=== PATIENT | male | born 1995 | race Caucasian/White ===

== ENCOUNTER 2024-03-29 15:06 | Outpatient (AMB) | payer BC, SELFPAY ==
--- NOTE | 2024-03-29 15:15 | A.OFFVIS_ITS ---
Intake Visit Reasons: vasectomy consult Intake Note: New Patient presents for initial visit for vasectomy consult Children#1; Expected Children #0 Urology Medications: none Blood Thinner: none Systems Requirements Planner Required: No Accompanied by: Self / Same As Patient Allergies No Known Allergies Allergy (Verified 03/29/24 15:44) Medication List - Last Reconciled 03/29/24 by DAWN Still bupropion HCl XL 300 mg PO DAILY valacyclovir 500 mg PO DAILY HPI Comments Details: Garry is a 28-year-old male patient of Dr. Prakash. He has a past medical history of ADD, depression, and chronic fatigue. He presents to the office today for - vasectomy evaluation Vasectomy evaluation The patient presents for vasectomy consultation.? 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 Patient education has been provided via AUA video, via printed information, risks of failure, recovery time, bruising and potential pain syndrome have been stressed Discussion today focused on the presence of vasectomy and the risks, benefits and alternatives that are available. Vasectomy as intended as a permanent form of control. Printed information and literature was provided to the patient. Overall there is a one in 2500 failure rate. This can occur at any time after vasectomy. Risks were discussed highlighting hematoma, spermatocele, epididymal congestion, development of sperm antibodies, and development of chronic pain estimated between 1-5%. The procedure was reviewed in detail. Anatomical diagrams of the male genitalia were used to explain the location of the vas deferens. The vas deferens will be transected, the proximal end will be cauterized, a metal clip would be applied to separate the 2 vas deferens ends. It was explained the procedure will be done in the office and takes approximately 10-15 minutes however, patient would like to have procedure in [place] if possible. Less common problems that arise with vasectomy include hematoma, bleeding, allergic reaction to anesthetic, epididymal infection, epididymal congestion, scrotal discomfort, spermatic leak, spermatic granuloma and the possibility of antisperm antibodies. He understands these risks and wishes to proceed. Consent was signed at the office today. He also understands that it takes 12 weeks for sperm to fully clear the system. He will need to provide a semen sample at 12 weeks and if this is not clear a 2nd sample at 16 weeks. Medical clearance to stop using protection will only be provided if he satisfies published criteria for sperm clearance. [facility] Medical History Chronic fatigue Moderate recurrent major depression Attention deficit disorder Review of Systems Const All systems reviewed & are unremarkable except as noted in HPI and below Physical Exam Const General: cooperative, healthy appearing, comfortable, no acute distress, well developed, alert and awake Orientation/consciousness: patient oriented x3 Limitations: no limitations HEENT Head: Yes normal to inspection, Yes normocephalic and Yes atraumatic Ears: hearing grossly normal bilaterally Eyes General: appearance normal, both eyes and all related structures Neck Neck: Yes normal visual inspection and Yes trachea midline Chest Chest palpation & inspection: normal inspection of the chest Resp Effort & Inspection: normal respiratory effort and able to speak in complete sentences Cardio Rate: regular rate GI Inspection: Yes normal to inspection General: Yes no CVA tenderness Back/Spine/Pelvis Back: no CVA tenderness Skin General skin exam: no rashes or lesions noted Neuro General: patient oriented x3 Extrem General: Yes normal to inspection Psych Appearance: grossly normal and well kempt Mental Status: mental status grossly normal Speech and movement: Normal speech and movement present and Clear speech present Affect: normal affect Attitude: cooperative Thought process: Normal thought process present Thought content: Normal thought content present Insight: Fair insight present (Psych) Judgement: Fair judgement present (Psych) Assessment & Plan Assessment & Plan (1) Vasectomy evaluation: Code(s): Z30.09 - Encounter for other general counseling and advice on contraception Category: Medical (2) Anxiety about health: Code(s): R45.89 - Other symptoms and signs involving emotional state Category: Medical Plan: Risks, benefits and alternatives to therapy were discussed. These include but are not limited to infection, bleeding, damage to local organs and tissues, need for further interventions. ? Anesthetic risks regarding cardiac arrhythmia, blood clots, and potential mortality were discussed. The patient understands the typical recovery time and the outpatient nature of the procedure. After consideration of these risks the patient gives full informed consent and they wish to move ahead with the procedure. Plan Discussed at length risks and benefits of vasectomy. Discussed procedure at length he would like to have this done in [place] if possible. Will attempt to obtain insurance authorization. Discussed follow-up status post procedure with semen analysis. Consent obtained. All questions were answered. Will schedule for vasectomy in operating room. Follow-up per doctor's orders; or sooner with any issues, concerns, and or questions. Patient Instructions: The patient had an opportunity to ask questions regarding the treatment plan. All questions were answered. Physical exam, labs, and imaging were discussed and reviewed in detail. As well as risks, benefits, and discussion of treatment choices. No major barriers to understanding were identified. The patient expressed understanding and agreement with the above treatment plan. The patient was made aware they should contact our office by phone for worsening of their current condition, the appearance of new symptoms, or with any questions or concerns. Compliance is encouraged with any medications and follow up testing that is ordered. It is a privilege to be allowed the opportunity to participate in? your urological care.? Again, if you have any questions or c oncerns If you have any questions or concerns please do not hesitate to contact me. The office is [phone]. This note is constructed using voice recognition software. While every effort has been made to ensure accuracy plating foreman errors may have been included. Yours sincerely, DAWN Still Coding Level of Care Code New Pt Level 4 (12454) Diagnoses Vasectomy evaluation Z30.09 Anxiety about health R45.89
== END 2024-03-29 15:41 | disposition home or self-care (01) ==
PROVIDERS: PCP Family Medicine; Visit Provider Nurse Practitioner Family
DX: Z30.09 Encounter for other general counseling and advice on contraception (principal); R45.89 Other symptoms and signs involving emotional state
CPT/HCPCS: 99204

== ENCOUNTER 2024-08-23 14:59 | Emergency (ER) | payer BC, SELFPAY ==
[2024-08-23 15:05] VITALS: BP 127/78; PULSE 59; RESP 16; TEMP 36.7; O2SAT 99; BMI 28.4
--- NOTE | 2024-08-23 15:30 | ED_ITS ---
HPI - General Adult General Chief complaint: Upper Respiratory Symptoms Stated complaint: sore throat Time Seen by Provider: 08/23/24 16:48 Source: patient Mode of arrival: ambulatory Limitations: no limitations History of Present Illness ED Provider: Leann Muhammad PA-C HPI narrative: Patient is a 28 year old assigned male at with no reported medical history presenting to the emergency department today with a sore throat. Patient states that over the last 5 days he has had a sore throat. Patient denies any dizziness, lightheadedness, abdominal pain, nausea, vomiting, fever, chills, blurry vision, double vision, loss of vision, chest pain, difficulty breathing, shortness of breath, back pain, night sweats, pain with urination, increased urinary frequency, increased urinary urgency, blood in his urine or stool, syncope or a near syncopal episode, recent trauma or falls, bowel incontinence, bladder incontinence, or any other complaints at this time. Onset (ago): day(s) (5) Relieving factors: none Exacerbating factors: none Associated symptoms: denies other symptoms Treatments prior to arrival: none Related Data Home Medications ?Medication ?Instructions ?Recorded ?Confirmed bupropion HCl 300 mg 24 hr tablet, 300 mg PO DAILY 03/29/24 extended release valacyclovir 500 mg tablet 500 mg PO DAILY 03/29/24 Allergies Allergy/AdvReac Type Severity Reaction Status Date / Time No Known Allergies Allergy Verified 08/23/24 15:07 Review of Systems Constitutional: Constitutional: Reports no additional constitutional complaints, Denies chills, Denies fever(s) and Denies night sweats Eyes: Eyes: Reports no additional eye complaints, Denies blurry vision, Denies change in vision, Denies diplopia, Denies eye discharge, Denies loss of vision and Denies eye pain ENT: Denies dizziness and Reports sore throat Cardiovascular: Cardiovascular: Reports no additional cardiovascular complaints, Denies chest pain, Denies lightheadedness, Denies Loss of Consciousness and Denies dyspnea Respiratory: Respiratory: Reports no additional respiratory complaints and De nies dyspnea Gastrointestinal: Gastrointestinal: Reports no additional gastrointestinal complaints, Denies abdominal pain, Denies melena, Denies hematochezia, Denies change in bowel habits and Denies change in stool character Genitourinary: Genitourinary: Reports no additional male genitourinary complaints, Denies hematuria, Denies oliguria, Denies difficulty urinating, Denies dysuria, Denies urinary frequency, Denies urinary hesitancy, Denies urinary incontinence and Denies urinary urgency Musculoskeletal: Musculoskeletal: Reports no additional musculoskeletal complaints, Denies numbness and Denies tingling Neurologic: Denies dizziness, Denies loss of vision, Denies numbness and Denies tingling Psychiatric: Psychiatric: Reports no additional psychiatric complaints Endocrine: Endocrine: Reports no additional endocrine complaints Hematologic/Lymphatic: Hematologic/Lymphatic: Reports no additional hematologic/lymphatic complaints Allergic/Immunologic: Allergic/Immunologic: Reports no additional allergic/immunologic complaints [facility] Past Medical History Attestation statement: The following information was validated with the patient. Source: old records reviewed and nursing notes reviewed Medical History Chronic fatigue Moderate recurrent major depression Attention deficit disorder Social History Social History Advance Directives: No Advance Directives Information Provided: Yes Do you have a plan to hurt others: No Plan Physical Exam ED Vital Signs: Vital Signs - 24 hr 08/23/24 15:05 08/23/24 16:55 Temperature 98.1 F 98.1 F Pulse Rate 59 59 Respiratory Rate 16 16 Blood Pressure 127/78 127/78 Pulse Oximetry 99 99 Oxygen Delivery Method Room Air Room Air BMI result Body Mass Index 28.4 Const General: cooperative, no acute distress, alert and awake Nutritional Appearance: well nourished Orientation/consciousness: patient oriented x3 Limitations: no limitations [facility] Head: Yes normal to inspection and Yes atraumatic Ears: hearing grossly normal bilaterally and external ears normal General nose exam: Normal external nose present, no nasal discharge noted and no epistaxis Face and sinus: Yes normal facial exam, No abrasion and No laceration Mouth: Normal oral and palatal mucosa present, no drooling and no muffled voice Throat: Yes abnormal tonsil (bilateral erythema) Eyes General: appearance normal, both eyes and all related structures Periorbital: periorbital findings normal Eyelids: Yes eyelids normal Conjunctivae: conjunctivae normal Pupils: Equal, round and reactive pupils present EOM: EOMs intact bilaterally Neck Neck: Yes normal visual inspection, Yes full ROM and Yes no lymphadenopathy Chest Chest palpation & inspection: normal inspection of the chest Resp Effort & Inspection: normal respiratory effort and able to speak in complete sentences GI Inspection: Yes normal to inspection Neuro General: patient oriented x3, moves all extremities and CN's II-XI intact bilaterally Cranial nerves: Yes Equal, round and reactive pupils present Cognition (Neuro): normal cognition Extrem General: Yes normal to inspection, Yes full ROM and Yes capillary refill normal Psych Appearance: grossly normal Mental Status: mental status grossly normal Affect: normal affect Attitude: cooperative Thought process: Normal thought process present Thought content: Normal thought content present Insight: Good insight present (Psych) Course Course Course Narrative: RME: 28-year-old male presents to ED for sore throat for 5 days difficulty swallowing and eating. Patient denies any drooling or change in voice. Negative for signs of peritonsillar abscess. SARs strep ordered Medical Decision Making Medical Decision Making MDM Narrative: Patient is a 28 year old assigned male at with no reported medical history presenting to the emergency department today with a sore throat. Patient's physical exam was as noted in the physical exam portion of this note. I explained my physical exam findings as well as all test results to the patient. I answered all questions asked by the patient. Patient's clinical presentation is most consistent with pharyngitis. I stressed the importance of the patient taking his medication as directed (either prescribed or as the over the counter packaging recommends). I stressed the importance of the patient following up with his primary care provider. I stressed the importance of the patient returning to the emergency department immediately if his symptoms were to worsen or if he were to develop any dizziness, shortness of breath, difficulty ayanna thing, chest pain, blurry vision, loss of vision, nausea, vomiting, abdominal pain, fever, chills, back pain, or any other complaints. Patient verbalized agreement and understanding with this treatment plan and discharge. Differential Diagnosis Differential Diagnoses: The differential diagnosis associated with the presentation includes Pharyngitis COVID-19 Influenza RSV Admission/Observation Consideration of admission/observation: Escalation of care including ad mission/observation considered Patient would have been admitted to the hospital had his work up had any findings where hospital admission was appropriate and his clinical presentation warranted hospital admission. Lab Data [facility] Lab Attestation statement: I reviewed the patient's lab results. My interpretation of these results are in the MDM Rationale portion of this note. Labs: Lab Results 08/23/24 Range/Units 15:14 Influenza Type A (PCR) NEGATIVE (Negative) Influenza Type B (PCR) NEGATIVE (Negative) RSV RNA Qual (PCR) NEGATIVE (Negative) SARS-CoV-2 RNA (RT-PCR) NEGATIVE (Negative) S. pyogenes GrpA HIREN Negative (Negative) Discharge Plan Discharge Clinical Impression: Viral illness, Pharyngitis Patient Disposition: Home, Self-Care Instructions: Pharyngitis (ED), Viral Syndrome (ED) Additional Instructions: Your clinical presentation is most consistent with a viral illness. Please stay hydrated with electrolyte containing fluids (Gatorade or Powerade). Follow up with your primary care provider. Return to the emergency department immediately if your symptoms worsen or if you develop any numbness, tingling, dizziness, shortness of breath, difficulty breathing, chest pain, blurry vision, loss of vision, nausea, vomiting, abdominal pain, fever, chills, back pain, or any other complaints. Please see the information below about our Patient Portal. If you are not yet enrolled in the [facility] Patient Portal, you will receive an enrollment email invitation following your visit to any [facility] setting. You may also self-enroll in the Patient Portal by visiting our website: [email or web address] The following information is required to access the Patient Portal: - Your [facility] Medical Record Number - Your personal home email address (must match what is in your electronic medical record, Registration staff can assist with this) - Name - Date of Capabilities of the Patient Portal: - Message some providers - View upcoming appointments - Access your health summary, medical history, and visit history - View current conditions and allergies - View procedure and lab results - View your medications, including guidelines, side effects, and precautions - Complete pre-appointment questionnaires requested by your provider - Ready summary reports of your office visits and procedures To access the Patient Portal Mobile [employer], follow these directions: - Search [employer] in the Amilcar Store or Google Play Store - Download the Amilcar - Search for [facility] - Enter your login/password Prescriptions: No Action bupropion HCl 300 mg tablet extended release 24 hr 300 mg PO DAILY valacyclovir 500 mg tablet 500 mg PO DAILY Referrals: [facility] Family Medicine [Provider Group] (Call to establish and follow up with a primary care provider. If you already have a primary care provider, please follow up with them.) [facility] Primary Care, Matti [Provider Group] (Call to establish and follow up with a primary care provider. If you already have a primary care provider, please follow up with them.) [facility] Primary CareYemi [Provider Group] (Call to establish and follow up with a primary care provider. If you already have a primary care provider, please follow up with them.) [facility] Primary CareAbdullahi [Provider Group] (Call to establish and follow up with a primary care provider. If you already have a primary care provider, please follow up with them.) Stand Alone Forms: Work/School Release Interventions: ED Discharge Assessment Last Done: 08/23/24 16:55 Discharge Date/Time: 08/23/24 16:56 Print Language: Palestinian
[2024-08-23 15:33] LABS: IDNOW Serial# 58CA691E; Strep A Nucleic Acid Negative (Negative)
[2024-08-23 16:04] LABS: Influenza A PCR NEGATIVE (Negative); Influenza B PCR NEGATIVE (Negative); Resp Syncy Virus RNA Qual PCR NEGATIVE (Negative); SARS COV2 PCR INHOUSE NEGATIVE (Negative)
[2024-08-23 16:55] VITALS: BP 127/78; PULSE 59; RESP 16; TEMP 36.7; O2SAT 99
--- OUTSIDE RECORDS SUMMARY | 2024-08-23 18:04 | XMS_ITS | Clinical Summary ---
Author Organization [employer] Address [address] [place] [address] Care Team Providers Care Workers' Compensation Magistrate Name Role Phone Leslie Arguetaline Unavailable Unavailable DwainBonnie Primary Care Provider [phone] Allergies No known active allergies Medications * This document contains information received from the source organization and may not represent a complete record from that organization. buPROPion XL (Wellbutrin XL) 300 MG 24 hr tabletIndications :Attention deficit hyperactivity disorder (ADHD), unspecified ADHD type,Moderate recurrent major depression (CMS/HCC) TAKE 1 TABLET (300 MG) BY MOUTH IN THE MORNING 30 tablet 11 02/02/20 24 025 Active valACYclovir (Valtrex) 500 MG tablet TAKE 1 TABLET (500 MG) BY MOUTH IN THE MORNING 30 tablet 5 08/10/19 25 Active valACYclovir (Valtrex) 500 MG tablet TAKE 1 TABLET (500 MG) BY MOUTH IN THE MORNING 30 tablet 5 02/02/20 24 025 Discontinued Active Problems Problem Noted Date Diagnosed Date Erectile dysfunction 03/15/2024 Assessment & Plan (03/15/2024 10:10 PM EDT): See HPI and encounter note with EMERGENCY RESPONSE TECHNICIAN Felix Lacy, pt had rx for viagra but didn't have occasion to use until more recently - new partner, reviewed correct use prior to sex. Is receptive to consult with urologist and reviewing chart we see he was already referred by his PCP but apparently hasn't been contacted yet by the urology office. No new referral should be necessary if pt is able to connect with the urology office to schedule as appears they were supposed to him to schedule. Encouraged Joaquin to discuss with PCP if also interested in seeing new therapist with whom he would feel comfortable discussing this concern (again see last encounter note with LYNDSAY Lacy for recommendations reviewed), pt agrees. No further questions or concerns at visit conclusion. Parenting stress 12/16/2023 Overview (12/16/2023): Joaquin agrees with in house referral: multiple concerns and wants to be a good parent to his 2 year old daughter with whom his shares custody with her mother. Has sole parenting responsibility multiple days of the week, discussed and receptive to learn skills/strategies for reducing stress/frustration and better understanding/coping with developmental stages of young children and expectations. Anhedonia 12/16/2023 Assessment & Plan (12/16/2023 9:24 PM EDT): Discussed medication adjunctive options to current bupropion and Joaquin would prefer to meet with (we discussed therapist but aware Dr. Delacruz and LYNDSAY Linn also may be able to meet with him virtually as he prefers and area both prescribers) and get results on the labs we discussed getting drawn before making medication additions/adjustments. 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 Pt aware of resources such as 988 if feelings of crisis or can't wait for therapy appointment to discuss treatment options. Chronic fatigue 08/05/2023 Overview (08/05/2023): Reports chronic fatigue symptoms for years. Assessment & Plan (12/16/2023 9:33 PM EDT): No improvement per Joaquin and willing to evaluate with some additional labs, plans to call the [facility] to make sure orders will be available at the [facility] in [place] where he would like to have drawn. Encouraged fasting and presenting well hydrated with water. Plan for followup once resulted and also agrees to meeting with (either therapist or Nik Delacruz or Aleshia Linn) for discussion as per other diagnoses addressed at [facility] visit. Encouraged routine/schedule and adequate sleep/sleep hygiene and Joaquin states he is sleeping fine. Assessment & Plan (08/29/2023 4:25 PM EDT): Chronic fatigue for years. Lab eval 08/14/23 unremarkable Discussed sleep habits and sleep deficit which may be contributing Also discussed reducing later caffeine intake Will check testosterone given fatigue plus sexual dysfunction Discussed possible diagnosis of CFS/ME, typical prognosis and supportive care Assessment & Plan (08/05/2023 11:01 AM EDT): Discussed likely multifactorial. Advised lab work for assess for common causes of fatigue including hypothyroidism, anemia. Reviewed lifestyle- currently getting 4-5 hours sleep nightly, encouraged more sleep. Feels depression is stable with current dose of Wellbutrin. KEY-7 Total Score: 3 (08/05/2023 10:41 AM) Patient Health Questionnaire-9 Score: 7 (08/05/2023 10:43 AM) Patient Health Questionnaire-2 Score: 2 (08/05/2023 10:43 AM) Mass of buttock 11/28/2022 Dyshidrotic dermatitis 10/07/2022 Palpitations 04/29/2022 Genital herpes simplex 04/29/2022 Assessment & Plan (04/29/2022 9:49 PM EST): As above. Acute exacerbation of asthma with allergic rhini tis 04/23/2022 Allergic rhinitis 04/23/2022 Acute non intractable tension-type headache 10/2021 ADHD (attention deficit hyperactivity disorder) 04/23/2022 Assessment & Plan (12/16/2023 9:30 PM EDT): Continue current bupropion, no adverse s.e. has been tolerating well since last December now at 300 mg once daily q a.m. dosing, just doesn't know that it is doing enough for his emotional health symptoms as per HPI. Agrees to schedule with therapist/prescriber to discuss parenting stressors/support and emotional health symptoms of continued concern. No SI/HI red flags noted in [facility] conversation and is aware of crisis line if needs immediate person to speak with and call the health center for followup. Prefers virtual appointments when at all possible. When considering adjunctive treatment to the bupropion pt mentions he doesn't want anything with sexual side effects or that cause him to gain weight. Autism 04/23/2022 Daytime somnolence 04/23/2022 Flexural eczema 04/23/2022 Lymphangitis 04/23/2022 Mild intermittent asthma 04/23/2022 Mild obesity 04/23/2022 Moderate recurrent major depression 04/23/2022 Obstructive sleep apnea 04/23/2022 Herpetic wilian 04/23/2022 Assessment & Plan (04/29/2022 9:48 PM EST): Pt reports complete resolution with proper use of topical acyclovir; lesion returned about 3 weeks after cessation of use and has continued to progress to present state. Will start daily treatment as he has had several similar outbreaks of this within the last year and struggles to use acyclvir topical product effectively. Pt agreeable to oral daily med for suppression. Denies any other lesions and has not had gential outbreak in approx 5 years. Pt to RTC as needed. Testicular mass 04/23/2022 Encounters Date Type Department Care Team Description 08/09/[address] [facility] MEDICAL [address] [place] [address] Bonnie Prakash DO 05/26/[address] [facility] MEDICAL [address] [place] [id number] Bonnie Prakash DO Gas; Memory Loss from Last 3 Months Immunizations Name Administration Dates Next Due DTP 06/02/1995, 5,04/17/1994,02/13 DTaP 1998 HPV 9-Valent 08/12/2012,04/07/2012,04/05/2011 Hep B, Adolescent or Pediatric 09/17/1994,1993,1993 Hib (PRP-T) 06/02/1995, 5,04/17/1994,02/13 Influenza, IIV3, injectable 04/08/2018 Influenza, Split (incl. john fied surface antigen) 04/07/2012,04/01/2011,04/04/2010 MMR 1998,12/19/1994 Meningococcal MCV4P ACYW-135 04/05/2011,01/22/20 07 Moderna Covid-19 Vaccine 12+ 12/07/2020,11/10/19 21 Polio, Unspecified 09/17/1994,04/17/1994, 994 TD (adult), 2 Lf tetanus tox oid, preservative free, adsorbed 06/09/2021,01/13/2004 Tdap 09/18/2016,03/31/2009 Family History Relation Name Status Comments Brother Alive Father Alive Mother Alive Sister Alive Social History Tobacco Use Types Packs/Day Years Used Date Smoking Tobacco: Some Days Cigars Passive Smoke Exposure: Current Smokeless Tobacco: Never Tobacco Cessation:Ready to Q uit: Not Asked; Counseling Given: Not Answered Alcohol Use Standard Drinks/Week Comments Yes 0 (1 standard drink = 0.6 oz pur e alcohol) rare Alcohol Answer Date Recorded How often do you have a drink containing alcohol ? 0 08/15/2023 How many drinks containing a lcohol do you have on a typical day when you are drinking? 0 08/15/2023 How often do you have six or more drinks on one occasion? 0 08/15/2023 Depression Answer Date Recorded Patient Health Questionnaire-9 Score 5 08/15/2023 Patient Health Questionnaire-9 Score 5 08/15/2023 Last PHQ-9: Questionnaire Data Not on file 0 08/15/2023 Housing Stability Answer Date Recorded What is your housing situation today? I have martínez mei 01/29/[address] you li ve. Do you have problems with any of the following? None of the above 01/29/2024 Food Insecurity Answer Date Recorded Within the past 12 months, y ou worried that your food would run out before you got money to buy more: Never True 01/29/2024 Within the past 12 months,th e food you bought just didn't last and you didn't have enough money to get more: Never True 04/2024 Transportation Answer Date Recorded In the past 12 months, has l ack of transportation kept you from medical appts, meetings, work or from getting things needed for daily living? No 01/29/2024 Intimate Partner Violence Answer Date R ecorded Within the last year, have y ou been afraid of your partner or ex-partner? 2 08/15/2023 Within the last year, have y ou been humiliated or emotionally abused in other ways by your partner or ex-partner? 2 Within the last year, have y ou been kicked, hit, slapped, or otherwise physically hurt by your partner or ex-partner? 2 08/15/2023 Within the last year, have y ou been raped or forced to have any kind of sexual activity by your partner or ex-partner? 2 08/15/2023 Utilities Answer Date Recorded In the past 12 months, has t he [employer], gas, oil or water company threatened to shut off services in your home? No 01/29/2024 Depression Answer Date Recorded Patient Health Questionnaire-2 Score 0 01/29/2024 Internet Access Answer Date Recorded Internet Access Q1 Yes 01/29/2024 Internet Access Q2 Not on file 01/29/2024 Education Answer Date Recorded What is the highest level of school you have completed or the highest degree you have received? 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 Not on file Not on file Last Filed Vital Signs Vital Sign Reading Time Taken Comments Blood Pressure 136/80 01/29/2024 12:15 PM EDT Pulse 95 01/29/2024 12:15 PM EDT Temperature 36.9 ??C (98.4 ??F) 01/29/2024 12:15 PM E DT Respiratory Rate 16 09/07/2022 11:33 AM EDT Oxygen Saturation 95% 01/29/2024 12:15 PM EDT Inhaled Oxygen Concentration - - Weight 94.8 kg (209 lb) 01/29/2024 12:15 PM EDT Height 185.4 cm (6' 1 ) 01/29/2024 12:15 PM EDT Body Mass Index 27.57 01/29/2024 12:15 PM EDT Plan of Treatment Health Maintenance Due Date Last Done Comments IPV Vaccines (4 of 4 - 4-dose series) 1997 09/17/1994, 04/17/1994, 02/13/1994 Alcohol/Substance Use Screening 2005 Family Planning (PISQ) 2008 Hepatitis C Screening 12/14/2011 Pneumococcal Vaccine: Pediatrics (0 to 5 Years) and At-Risk Patients (6 to 49) Years) (1 of 2 - PCV) 2012 Lipid Panel 12/02/2017 12/02/2012 Dental Oral Exam 11/29/2020 05/31/2020, 09/2017, 01/14/2017, Additional history exists Dental Prophylaxis 11/29/2020 05/31/2020, 0 07/21/2017, 01/14/2017, Additional history exists Dental X-Ray: Bitewings 06/01/2021 05/31/19 21, 01/14/2017, 01/04/2016, Additional history exists Dental X-Ray: Full Mouth 06/01/2023 021, 01/04/2016, 03/27/2012 COVID-19 Vaccine ( season) 2024 12/07/2020, 11/09/2020 Influenza Vaccine (#1) 2024 8, 04/07/2012, 04/01/2011, Additional history exists Depression Screening 01/28/2025 01/29/2024, 08/15/19 24 SDOH Screening 01/28/2025 01/29/2024 Tobacco Screening 03/15/2025 03/15/2024 DTaP/Tdap/Td Vaccines (9 - Td or Tdap) 06/09/2031 06/09/2021, 09/18/2016, 03/31/2009, Additional history exists Zoster Vaccines (1 of 2) 12/14/2043 RSV Patients and Patients Aged 60 years or older (1 - 1-dose 75+ series) 2068 Hepatitis B Vaccines Completed 09/17/1994, 02/13/1994, 1993 HIB Vaccines Completed 06/02/1995, 05/21, 04/17/1994, Additional history exists Meningococcal Vaccine Completed 04/05/2011, 007 HPV Vaccines Completed 08/12/2012, 03/20, 04/05/2011 HIV Screening Completed 03/23/2014 Hepatitis A Vaccines Aged Out No long er eligible based on patient's age to complete this topic RSV under 20 months Aged Out No longe r eligible based on patient's age to complete this topic Rotavirus Vaccines Aged Out No longer eligible based on patient's age to complete this topic Procedures Procedure Name Priority Date/Time Associated Diagnosis Comments PROPHYLAXIS - ADULT Routine 05/31/2020 1 2:00 AM EST INTRAORAL - COMPLETE SERIES OF RADIOGRAPHIC IMAGES Routine 05/31/2020 12:00 AM EST PERIODIC ORAL EVALUATION - ESTABLISHED PATIENT Routine 05/31/2020 12:00 AM EST HIV-1 ANTIBODY, EIA Routine 03/23/2014 LIPID PANEL, STANDARD Routine 12/02/2012 from Last 3 Months or Most Recently Relevant to Health Maintenance Results * HIV-1 antibody, EIA (03/23/2014) External HIV-1 Antibody Negative Blood Venous blood specimen / Unknown Historical Provider LAB BLOOD ORDERABLES Taylor l Result * (ABNORMAL) Lipid Panel, Standard (12/02/2012) Triglycerides 38(A) 40 - 160 mg/dL Cholesterol 101 0 - 200 mg/dL HDL Cholesterol 53 35 - 70 mg/dL LDL Cholesterol 40 mg/dL Blood Venous blood specimen / Unknown us Historical Provider LAB BLOOD ORDERABLES Taylor l Result from Last 3 Months or Most Recently [place]vant [place] [id number] [facility] PPO Care Teams Workers' Compensation Magistrate Relationship Specialty Start Date End Date Bonnie Prakash DO [address] [place] [id number] PCP - General Family Medicine 01/30/24 Inez Argueta Community Health Worker 09/23/22
--- OUTSIDE RECORDS SUMMARY | 2024-08-23 18:04 | XMS_ITS | Encounter Summary ---
Author Organization [employer] Address [address] [place] [address] Care Team Providers Care Ssis Architect Name Role Phone Manuela Bernard Primary Care Provider Unavailable Inez Argueta Unavailable Unavailable Manuela Bernard Primary Care Provider Unavailable Bonnie Prakash DO Primary Care Provider Bonnie Prakash DO Primary Care Provider [phone] Encounter Details Date Type Department Care Team (Late st Contact Info) Description 04/23/2022 Orders Only [facility] MEDICAL [address] [place], [place] [id number] Manuela Bernard FNP Social History Tobacco Use Types Packs/Day Years Used Date Smoking Tobacco: Never Assessed Sex and Gender Information Value Date Recorded Sex Assigned at Male 04/30/2022 3:25 PM EST Legal Sex Male 8:35 PM EDT Gender Identity Male 04/30/2022 3:25 PM EST Sexual Orientation Choose not to disclose 2022 3:15 PM EST documented as of this encounter Plan of Treatment Not on file documented as of this encounter Visit Diagnoses Not on filedocumented in this encounter Care Teams Ssis Architect Relationship Specialty Start Date End Date Manuela Bernard FNP PCP - General Family Medicine 04/29/22 12/16/23 Manuela Bernard FNP PCP - General Family Medicine 12/17/23 01/28/24 Bonnie Prakash DO [address] [place] [address] PCP - General Family Medicine 01/29/24 01/29/24 Bonnie Prakash DO [address] [place] [address] PCP - General Family Medicine 01/30/24 Inez Argueta Community Health Worker 09/23/22 documented as of this encounter
== END 2024-08-23 16:56 | disposition home or self-care (01) ==
PROVIDERS: Emergency Provider Emergency Medicine Emergency Medical Services
DX: B34.9 Viral infection, unspecified (principal); J02.9 Acute pharyngitis, unspecified; R13.10 Dysphagia, unspecified; Z03.818 Encounter for observation for suspected exposure to other biological agents ruled out
CPT/HCPCS: 0241U; 87651; 99282; 99283

== ENCOUNTER 2024-11-03 11:47 | Emergency (ER) | payer BC, SELFPAY ==
[2024-11-03 12:00] VITALS: BP 129/68; PULSE 58; RESP 16; TEMP 36.5; O2SAT 98; BMI 27.5
--- NOTE | 2024-11-03 12:01 | ED.GENADULT ---
HPI - General Adult General Chief complaint: General Medical Stated complaint: STD Testing Related Data Home Medications ?Medication ?Instructions ?Recorded ?Confirmed bupropion HCl 300 mg 24 hr tablet, 300 mg PO DAILY 03/29/24 extended release valacyclovir 500 mg tablet 500 mg PO DAILY 03/29/24 Allergies Allergy/AdvReac Type Severity Reaction Status Date / Time No Known Allergies Allergy Verified 11/03/24 12:02 [facility] Past Medical History Medical History Chronic fatigue Moderate recurrent major depression Attention deficit disorder Social History Social History Advance Directives: No Advance Directives Information Provided: No Do you have a plan to hurt others: No Plan Physical Exam ED Vital Signs: Vital Signs - 24 hr 11/03/24 12:00 Temperature 97.7 F Pulse Rate 58 Respiratory Rate 16 Blood Pressure 129/68 Pulse Oximetry 98 Oxygen Delivery Method Room Air BMI result Body Mass Index 27.5 Course Course Course Narrative: RME, this is a rapid medical exam performed by Daron Hensley please refer to primary provider for complete H&P- 28 year old male presents for evaluation of STI testing. He is requesting testing because his girlfriend wants him to be tested. He reports that he has ?some sort of warts in the area that has been there for about 8 years. ? Medical Decision Making Lab Data Labs: Lab Results 11/03/24 Range/Units 12:34 Urine Color Yellow Urine Appearance Clear Urine pH 6.5 (5.0-9.0) Ur Specific [place] 1.025 (1.005-1.025) Urine Protein Negative (Neg-Trace) mg/dL Urine Glucose (UA) Negative (Negative) mg/dL Urine Ketones Trace (Negative) mg/dL Urine Blood Negative (Negative) Urine Nitrite Negative (Negative) Ur Leukocyte Esterase Negative (Negative) Urine RBC 0-2 (0-2) /HPF Urine WBC 0-5 (0-5) /HPF Ur Squamous Epith Cells 0-2 (0-2) /HPF Urine Bacteria None Seen (None Seen) Hyaline Casts 0-2 (0-2) /LPF Chlam trachomat DNA PCR NOT DETECTED (Not Detect.) N.gonorrhoeae DNA (PCR) NOT DETECTED (Not Detect.) Discharge Plan Discharge Clinical Impression: Screening examination for STI Patient Disposition: Left W/O Completing Treatment Prescriptions: No Action bupropion HCl 300 mg tablet extended release 24 hr 300 mg PO DAILY valacyclovir 500 mg tablet 500 mg PO DAILY
[2024-11-03 12:52] LABS: Appearance Urine Clear; Color Urine Yellow; Glucose Urine UA Negative (Negative); Leukocyte Esterase Urine Negative (Negative); Nitrite Urine Negative (Negative); PH 6.5 (5.0-9.0); Specific Gravity - Urine 1.025 (1.005-1.025); Urine Blood Negative (Negative); Urine Ketones Trace mg/dL (Negative); Urine Protein Negative (Neg-Trace)
[2024-11-03 12:54] LABS: Bacteria Urine None Seen (None Seen); Hyaline Casts Urine 0-2 /LPF (0-2); RBC Urine 0-2 /HPF (0-2); Squamous Epithelial Cell Urine 0-2 /HPF (0-2); WBC Urine 0-5 /HPF (0-5)
[2024-11-03 14:15] LABS: CT PCR NOT DETECTED (Not Detect.); NG PCR NOT DETECTED (Not Detect.)
--- NOTE | 2024-11-03 14:36 | PC.NURSE ---
Pt came to triage door stating that if his results were not back in 45 minutes, he would have to go. Informed patient he is free to go if he chooses. Patient observed leaving the dept with a steady gait ~30mins later.
--- OUTSIDE RECORDS SUMMARY | 2024-11-03 16:45 | XMS_ITS | Clinical Summary ---
Author Organization [employer] Address [address] [place] [address] Care Team Providers Care Office Communication Professor Name Role Phone Leslie Arguetaline Unavailable Unavailable Bonnie Prakash DO Primary Care Provider [phone] Allergies No known active allergies Medications * This document contains information received from the source organization and may not represent a complete record from that organization. 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 Encouraged fasting and presenting well hydrated with water. Plan for followup once resulted and also agrees to meeting with (either therapist or Nik Delacruz or Aleshia Linn) for discussion as per other diagnoses addressed at [facility]'s visit. Encouraged routine/schedule and adequate sleep/sleep hygiene [...] concern. No SI/HI red flags noted in tonight's conversation and is aware of crisis line [...] Encounters Date Type Department Care Team Description 10/18/2024 Telephone [facility] MEDICAL [address] [place] [address] Bonnie Prakash DO records request 08/09/2024 Refill [facility] MEDICAL [address] [place] [address] Bonnie Prakash DO from Last 3 Months Immunizations Immunization Administration Dates Next Due DTP 06/02/1995, 5,04/17/1994,02/13 [...] is your housing situation today? 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 Not on file Not on file Last Filed Vital Signs Vital Sign Reading Time Taken Comments Blood Pressure 136/80 01/29/2024 12:15 PM EDT Pulse 95 01/29/2024 12:15 PM EDT Temperature 36.9 C (98.4 F) 01/29/2024 12:15 PM EDT Respiratory Rate 16 09/07/2022 11:33 AM EDT Oxygen Saturation 95% 01/29/2024 12:15 PM EDT Inhaled Oxygen Concentration - - Weight 94.8 kg (209 lb) 01/29/2024 12:15 PM EDT Height 185.4 cm (6' 1 ) 01/29/2024 12:15 PM EDT Body Mass Index 27.57 01/29/2024 12:15 PM EDT Plan of Treatment Health Maintenance Due Date Last Done Comments Disability Screening 1993 IPV Vaccines (4 of 4 - 4-dose series) 1997 09/17/1994, 04/17/1994, 02/13/1994 Alcohol/Substance Use Screening 2005 Family Planning (PISQ) 2008 Hepatitis C Screening 12/14/2011 Pneumococcal Vaccine: Pediatrics (0 to 5 Years) and At-Risk Patients (6 to 49) Years (1 of 2 - PCV) 2012 Lipid Panel 12/02/2017 12/02/2012 Dental Oral Exam 11/29/2020 05/31/2020, 09/2017, 01/14/2017, Additional history exists Dental Prophylaxis 11/29/2020 05/31/2020, 0 07/21/2017, 01/14/2017, Additional history exists Dental X-Ray: Bitewings 06/01/2021 05/31/19 21, 01/14/2017, 01/04/2016, Additional history exists Dental X-Ray: Full Mouth 06/01/2023 021, 01/04/2016, 03/27/2012 COVID-19 Vaccine ( season) 2024 12/07/2020, 11/09/2020 Influenza Vaccine (Season Ended) 2025 04/08/2018, 04/07/2012, 04/01/2011, Additional history exists Depression Screening [...] on patient's age to complete this topic Meningococcal B Vaccine Aged Out No l onger eligible based on patient's age to complete [...] mg/dL Blood Venous blood specimen / Unknown Historical Provider LAB BLOOD ORDERABLES Taylor l Result from Last 3 Months or Most Recently Relevant to Health Maintenance Insurance [employer] PPO Care Teams Office Communication Professor Relationship Specialty Start Date End Date Bonnie Prakash DO [address] [place] [id number] PCP - General Family Medicine 01/30/24 Inez Argueta Community Health Worker 09/23/22
== END 2024-11-03 14:37 | disposition left against medical advice (07) ==
PROVIDERS: Physician Assistant; Emergency Provider Emergency Medicine
DX: Z11.3 Encounter for screening for infections with a predominantly sexual mode of transmission (principal); Z20.2 Contact with and (suspected) exposure to infections with a predominantly sexual mode of transmission; Z79.899 Other long term (current) drug therapy
CPT/HCPCS: 81001; 87491; 87591; 99282

== ENCOUNTER 2025-03-23 15:21 | Outpatient (AMB) | payer BC, SELFPAY ==
--- NOTE | 2025-03-23 15:23 | MHC.OFFVIS ---
Vital Signs 03/23/25 15:28 Height 6 ft 1 in Weight 202 lb BMI 26.6 BP 132/62 Blood Pressure Location Rt brachial Position Sitting Pulse 76 Pulse Source Pulse Oximeter Pulse Oximetry (%) 97 Oxygen Delivery Method Room Air Intake Visit Reasons: Frenquent Bowel, abd. pain Intake Note: New pt for initial eval of BM irregularities + abd pain. CC: C.O. LUQ pain, constipation, difficulty with evacuating bowels, and increased frequency of BMs. Pt denies any evidence of hematochezia or melena at this time. 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 pain: Details: 29-year-old male with no significant medical history is here today for initial consultation. Patient was sent to us by his PCP. Patient reports frequent stooling throughout the day. Patient feels like he does not empty completely when he has a bowel movement. Patient denies melena, hematochezia, unintentional weight loss or ribbon like stools. Patient does not believe that is related to the food that he eats. Patient not always is eating healthy. Patient is unable to describe his symptoms. Patient feels little anxious and frequently answers: I do know . [facility] Medical History Chronic fatigue Moderate recurrent major depression Attention deficit disorder Review of Systems Const Denies weight gain and Denies weight loss ENT Reports no additional complaints, Denies dysphagia and Denies odynophagia Card Reports no additional complaints Resp Reports no additional complaints GI Reports abdominal pain (LUQ), Denies belching, Denies melena, Reports bloating, Denies change in bowel habits, Reports constipation, Denies dysphagia, Denies excessive flatus, Denies dyspepsia, Denies heartburn, Denies diarrhea, Reports loose stools, Denies nausea, Denies odynophagia and Denies vomiting Reports no additional complaints Musc Reports no additional complaints Neuro Reports no additional complaints Psych Reports no additional complaints Endo Reports no additional complaints Physical Exam Vital Signs: Last Vital Signs Pulse 76 03/23/25 15:28 BP 132/62 03/23/25 15:28 Pulse Ox 97 03/23/25 15:28 Oxygen Delivery Method Room Air 03/23/25 15:28 BMI result Body Mass Index 26.6 Const General: healthy appearing, no acute distress and well developed Nutritional Appearance: well nourished Orientation/consciousness: patient oriented x3 Resp Effort & Inspection: normal respiratory effort, able to speak in complete sentences, no tracheal deviation and symmetric chest movement Auscultation: clear to auscultation bilaterally Cardio Rate: regular rate GI Inspection: Yes normal to inspection and No distended Palpation (GI): Soft to palpation, not firm, nontender and No hepatosplenomegaly present Auscultation: normal bowel sounds General: Yes no CVA tenderness Back/Spine/Pelvis Back: no CVA tenderness Skin General skin exam: elasticity normal, turgor normal and dry skin Neuro General: patient oriented x3 Psych Appearance: grossly normal Mental Status: mental status grossly normal Assessment & Plan Assessment & Plan (1) Constipation: Code(s): K59.00 - Constipation, unspecified Qualifiers: Constipation type: slow transit constipation Qualified Code(s): K59.01 - Slow transit constipation (2) Postprandial diarrhea: Code(s): K52.9 - Noninfective gastroenteritis and colitis, unspecified Plan Patient was encouraged to try fiber supplements with pre and probiotics. We have talked about low FODMAP diet. List of food recommended as well as list of food to avoid given to patient. Will check vitamin B12, folate, vitamin-D level as well as transglutaminase. Patient will follow-up with us as needed. Patient denies melena, hematochezia. No family history of CRC. Patient denies any abdominal pain or discomfort. Patient's symptoms are related most likely to dietary choices. Patient is agreeable to current plan of care and verbalizes understanding of instructions. He was given the opportunity to ask questions and all questions answered. Thank you for allowing me to participate in his care Orders: Orders Vitamin B12 and Folate 03/23/25 R19.7 - Diarrhea, unspecified Vitamin D 25-OH (D2 and D3) 03/23/25 E55.9 - Vitamin D deficiency, unspecified Transglutaminase IgA 03/23/25 R10.9 - Unspecified abdominal pain Coding Level of Care Code New Pt Level 3 (98125) Diagnoses Slow transit constipation K59.01 Constipation type: slow transit constipation Postprandial diarrhea K52.9 Time Spent (min) 40 Comment 30 minutes spent with patient and additional 10 minutes spent reviewing his records
[2025-03-23 15:28] VITALS: BP 132/62; PULSE 76; O2SAT 97; BMI 26.6
--- OUTSIDE RECORDS SUMMARY | 2025-03-23 18:18 | XMS_ITS | Clinical Summary ---
Author Organization [facility] Address [address] [address] Phone Care Team Providers Care Data Processing Systems Consultant Name Role Phone Unknown, Unknown Primary Care Provider Alondravachandler lable Allergies No known active allergies Medications diphenhydrAMINE (BENADRYL) 25 mg capsule Take 25 mg by mouth every 6 (six) hours as needed for itching. Active buPROPion (WELLBUTRIN XL) 150 MG ER 24 hr tablet TAKE 1 TABLET (150 MG) BY MOUTH IN THE MORNING 3 Active clobetasol (TEMOVATE) 0.05 % ointment PLEASE SEE ATTACHED FOR DETAILED DIRECTIONS 3 Active dextroamphetami ne-amphetamine (ADDERALL) 15 mg Tab tablet Take 1 tablet by mouth 2 (two) times a day. 5 Active valACYclovir (VALTREX) 500 MG tablet take 1 tablet (500 mg) by mouth in the morning Active buPROPion (WELLBUTRIN XL) 300 MG ER 24 hr tablet take 1 tablet (300 mg) by mouth in the morning Active Active Problems No known active problems Immunizations Immunization Administration Dates Next Due Td (adult),2 Lf Tetanus Toxoid, PF, Adsorbed ,01/13/2004 Tdap 09/18/2016,03/31/2009 Social History Tobacco Use Types Packs/Day Years Used Date Smoking Tobacco: Never Assessed Education Answer Date Recorded Are you interested in more education? Not on vielka e 09/13/2022 Are you concerned about learning? Not on file 09/13/2022 No 09/13/2022 No 09/13/2022 Digital Access Answer Date Recorded No 10/11/2022 No 10/11/2022 Reliable internet access at home? Not on file 10/11/2022 Device with a working camera? Not on file Sex and Gender Information Value Date Recorded Sex Assigned at Not on file Legal Sex Male 8:55 PM EDT Gender Identity Not on file Sexual Orientation Not on file Last Filed Vital Signs Vital Sign Reading Time Taken Comments Blood Pressure 116/70 11/24/2024 4:08 PM EDT Pulse 80 11/24/2024 4:08 PM EDT Temperature 36.2 C (97.1 F) 11/24/2024 4:08 PM EDT Respiratory Rate 18 11/24/2024 4:08 PM EDT Oxygen Saturation 99% 11/24/2024 4:08 PM EDT Inhaled Oxygen Concentration - - Weight 106.6 kg (235 lb) 11/17/2020 9:37 AM EDT Height 185.4 cm (6' 1 ) 11/17/2020 9:37 AM EDT Body Mass Index 31 11/17/2020 9:37 AM EDT Plan of Treatment Health Maintenance Due Date Last Done Comments DEPRESSION SCREENING 2005 SMOKING Hx and SMOKELESS TOBACCO SCREENING 2006 HEPATITIS C SCREENING 12/14/2011 HIV ONE-TIME SCREENING (18-65 YEARS) 12/14/2011 INFLUENZA VACCINE (#1) 2024 COVID-19 VACCINE ( season) 2025 12/07/2020, 11/09/2020 Adult Td,Tdap Booster 06/09/2031 06/09/2021 , 09/18/2016, 03/31/2009, Additional history exists HEPATITIS A VACCINES Aged Out No long er eligible based on patient's age to complete this topic HIB VACCINES Aged Out No longer eligi ble based on patient's age to complete this topic MENINGOCOCCAL VACCINES (ACWY) Aged Out No longer eligible based on patient's age to complete this topic MENINGOCOCCAL VACCINES (B) Aged Out N o longer eligible based on patient's age to complete this topic PNEUMOCOCCAL VACCINES (0-49 years) Aged Out No longer eligible based on patient's age to complete this topic Medical [place] [id number] BLUE CROSS OUT OF STATE PPO BLUE CROSS OUT OF STATE PPO BLUE CROSS OUT OF STATE PPO BLUE CROSS OUT OF STATE PPO BLUE CROSS OUT OF STATE PPO BLUE CROSS OUT OF STATE PPO Care Teams Data Processing Systems Consultant Relationship Specialty Start Date End Date Unknown, Unknown, PCP - General 01/14/23 Additional Source Comments The information contained in this document represents components of the legal health record. It is not the complete legal health record.[facility]
== END 2025-03-23 15:50 | disposition home or self-care (01) ==
LOC: HO.HGI 15:22
PROVIDERS: Visit Provider Nurse Practitioner Family
DX: K59.01 Slow transit constipation (principal); K52.9 Noninfective gastroenteritis and colitis, unspecified
CPT/HCPCS: 99203